=== PATIENT | male | born 1945 | race Two or more races ===

== ENCOUNTER 2024-03-29 23:48 | Inpatient (IN) | payer MEDICARE, OTHER ==
[~2024-03-29] VITALS: Ht 152.4 cm; Wt 77.1 kg
[2024-03-30 00:29] LABS: BASOPHILS # (AUTO) 0.1 K/UL (0.0-0.2); EOSINOPHILS # (AUTO) 0.2 K/uL (0.0-0.7); EOSINOPHILS % (AUTO) 2.2 % (0.0-7.0); HEMATOCRIT 35.8 % (36.7-47.1); HEMOGLOBIN 11.1 g/dL (12.5-16.3); LYMPHOCYTES % (AUTO) 9.2 % (20.5-51.5); MEAN CORPUSCULAR HEMOGLOBIN 23.8 uug (23.8-33.4); MEAN CORPUSCULAR HGB CONC 31 g/dL (32.5-36.3); MEAN CORPUSCULAR VOLUME 76.4 fL (73.0-96.2); MONOCYTES # (AUTO) 0.7 K/uL (0.1-1.30); MONOCYTES % (AUTO) 6.4 % (0.0-11.0); NEUTROPHILS # (AUTO) 9.3 K/uL (1.8-8.9); NEUTROPHILS % (AUTO) 81.2 % (38.5-71.5); PLATELET COUNT (AUTO) 283 K/uL (152-348); RED BLOOD CELL COUNT(AUTO) 4.68 MIL/uL (4.06-5.63); RED CELL DISTRIBUTION WIDTH 15.7 % (12.1-16.2); WHITE BLOOD COUNT (AUTO) 11.4 K/uL (3.6-10.2)
[2024-03-30 00:31] LABS: DIFFERENTIAL COMMENT 1
[2024-03-30 00:52] LABS: ALANINE AMINOTRANSFERASE 21 U/L (16-63); ALBUMIN 3.8 g/dL (3.4-5.0); ALKALINE PHOSPHATASE 67 U/L (50-136); ASPARTATE AMINOTRANSFERASE 10 U/L (15-37); BILIRUBIN,TOTAL 0.3 mg/dL (0.2-1.0); CARBON DIOXIDE 27 mmol/L (21-32); CHLORIDE 105 mmol/L (98-107); GLUCOSE 167 mg/dL (74-106); NT-PRO BNP 280 pg/mL (0-125); POTASSIUM 4.4 mmol/L (3.5-5.1); SODIUM SERUM 140 mmol/L (136-145); TOTAL PROTEIN, SERUM 7.5 g/dL (6.4-8.2); UREA NITROGEN, BLOOD 11 mg/dL (7-18)
[2024-03-30 02:30] LABS: *BILIRUBIN,URIN NEGATIVE (NEGATIVE); *BLOOD, URINE NEGATIVE (NEGATIVE); *CLARITY,URINE CLEAR (CLEAR); *COLOR,URINE YELLOW (YELLOW); *KETONES,URINE NEGATIVE (NEGATIVE); *PROTEIN,URINE NEGATIVE (NEGATIVE); *UROBILINOGEN,URINE 0.2 E.U./dl (NORMAL); LEUKOCYTE ESTERASE ,URINE NEGATIVE (NEGATIVE); NITRITE, URINE NEGATIVE (NEGATIVE); PH,URINE 6.5 (5.0-8.0)
[2024-03-30 02:35] LABS: UGLUCOSE 2+ (NEGATIVE)
[2024-03-30 03:10] LABS: BACTERIA,URINE FEW /HPF (NONE SEEN); CALCIUM OXALATE CRYSTALS,UR FEW /HPF (NONE SEEN); RBC,URINE 0-3 /HPF (0-3); SQUAMOUS EPITHELIAL CELL,UR FEW /HPF (NONE SEEN); WBC,URINE NONE SEEN /HPF (0-3)
[2024-03-30] MEDS ORDERED: ACETAMINOPHEN 325 MG TABLET PO PRN (03:45)
[2024-03-30] MEDS ORDERED: ONDANSETRON 4 MG/2 ML VIAL IV PRN (03:45)
[2024-03-30] MEDS ORDERED: DEXTROSE 50% 50 ML DISP.SYRIN IV PRN (03:45)
[2024-03-30] MEDS ORDERED: MAGNESIUM HYDROXIDE 30 ML LIQUID UDC PO PRN (03:45)
[2024-03-30 07:18] LABS: BASOPHILS # (AUTO) 0.1 K/UL (0.0-0.2); BASOPHILS % (AUTO) 1.5 % (0.0-2.0); EOSINOPHILS # (AUTO) 0.2 K/uL (0.0-0.7); EOSINOPHILS % (AUTO) 3.1 % (0.0-7.0); HEMATOCRIT 35.7 % (36.7-47.1); HEMOGLOBIN 11.3 g/dL (12.5-16.3); LYMPHOCYTES # (AUTO) 1.6 K/uL (0.8-4.8); LYMPHOCYTES % (AUTO) 20.9 % (20.5-51.5); MEAN CORPUSCULAR HEMOGLOBIN 24.2 uug (23.8-33.4); MEAN CORPUSCULAR HGB CONC 32 g/dL (32.5-36.3); MONOCYTES # (AUTO) 0.7 K/uL (0.1-1.30); MONOCYTES % (AUTO) 8.4 % (0.0-11.0); NEUTROPHILS # (AUTO) 5.2 K/uL (1.8-8.9); NEUTROPHILS % (AUTO) 66.1 % (38.5-71.5); PLATELET COUNT (AUTO) 285 K/uL (152-348); WHITE BLOOD COUNT (AUTO) 7.8 K/uL (3.6-10.2)
[2024-03-30 07:50] LABS: CALCIUM 8.5 mg/dL (8.5-10.1); CARBON DIOXIDE 24 mmol/L (21-32); CHLORIDE 105 mmol/L (98-107); CREATININE 0.8 mg/dL (0.6-1.3); GLUCOSE 130 mg/dL (74-106); PHOSPHOROUS 3.4 mg/dL (2.5-4.9); POTASSIUM 4.4 mmol/L (3.5-5.1); SODIUM SERUM 139 mmol/L (136-145); UREA NITROGEN, BLOOD 10 mg/dL (7-18)
[2024-03-30 07:51] LABS: DIFFERENTIAL COMMENT 1
[2024-03-30] MEDS: BLOOD SUGAR DIAGNOSTIC 1 EACH STRIP VI SCH (08:22)
[2024-03-30] MEDS ORDERED: INSULIN REGULAR, HUMAN 1000 UNIT/10 ML VIAL ONE (08:44)
[2024-03-30] MEDS: INSULIN REGULAR, HUMAN 1000 UNIT/10 ML VIAL SQ PRN (08:50)
[2024-03-30] MEDS ORDERED: ASPIRIN 81 MG TAB.CHEW ONE (09:05)
[2024-03-30] MEDS ORDERED: PANTOPRAZOLE SODIUM 40 MG VIAL ONE (09:05)
[2024-03-30] MEDS: PANTOPRAZOLE SODIUM 40 MG VIAL IV SCH (09:38)
[2024-03-30] MEDS: ASPIRIN 81 MG TAB.CHEW PO SCH (09:38)
[2024-03-30] MEDS ORDERED: HEPARIN SODIUM,PORCINE 5,000 UNITS/ML VIAL ONE (10:52)
[2024-03-30] MEDS: HEPARIN/D5W DRIP 500 ML IV PRN (11:02)
[2024-03-30] MEDS: HEPARIN SODIUM,PORCINE 5,000 UNITS/ML VIAL IV ONE (11:04)
[2024-03-30 18:43] VITALS: O2SAT 97
== END 2024-03-30 18:42 | disposition short-term general hospital (02) | DRG 282 ==
LOC: ER 23:48 → TRANSITION 03-30 06:47
DX: I21.4 Non-ST elevation (NSTEMI) myocardial infarction (principal); Z95.5 Presence of coronary angioplasty implant and graft; I25.10 Atherosclerotic heart disease of native coronary artery without angina pectoris
CPT/HCPCS: 36415; 71045; 83735; 84100; 84484; 85025; 85610; 85730; 93307; G0378; J1644; J1815; J2470